=== PATIENT | female | born 1980 | race African-American/Black ===

== ENCOUNTER 2024-02-11 23:42 | Emergency (ER) | payer BC ==
[~2024-02-11] VITALS: Ht 152.4 cm; Wt 85.3 kg
[~2024-02-11 23:42] MED LIST: BACTRIM DS TAB1 EACH PO; ONDANSETRON ODT4 MG PO
[2024-02-11 23:51] VITALS: TEMP 98.4
[2024-02-12] MEDS: KETOROLAC TROMETHAMINE 30 MG/ML VIAL IV STA (00:28)
[2024-02-12 00:30] LABS: BASOPHILS % 0.4 % (0.0-1.0); EOSINOPHILS # (AUTO) 0.1 (0.0-0.4); HEMATOCRIT 41.3 % (34.2-44.1); HEMOGLOBIN 12.9 g/dL (12.0-16.0); LYMPHOCYTES # (AUTO) 3.6 (1.0-3.2); LYMPHOCYTES % 34.4 % (18.0-39.1); MEAN CORPUSCULAR HEMOGLOBIN 29.3 pg (28-32); MEAN CORPUSCULAR HGB CONC 31.2 g/dL (31-35); MEAN CORPUSCULAR VOLUME 93.7 fL (81-99); MONOCYTES # (AUTO) 0.6 (0.2-0.8); MONOCYTES % 5.7 % (4.4-11.3); NEUTROPHILS % 58.3 % (38.7-80.0); PLATELET COUNT 249 x10e3/uL (140-360); RED BLOOD COUNT 4.41 x10e6/uL (3.6-5.1); RED CELL DISTRIBUTION WIDTH 12.9 % (11.7-14.4); WHITE BLOOD COUNT 10.33 x10e3/uL (4.8-10.8)
[2024-02-12 00:33] LABS: PREGNANCY TEST, URINE NEGATIVE (NEGATIVE)
[2024-02-12 00:40] LABS: BILIRUBIN,URINE NEGATIVE (NEGATIVE); CLARITY,URINE SL CLOUDY (CLEAR); COLOR,URINE YELLOW (YELLOW); GLUCOSE, URINE NEGATIVE (NEGATIVE); KETONES,URINE NEGATIVE (NEGATIVE); LEUKOCYTE ESTERASE ,URINE NEGATIVE (NEGATIVE); NITRITE,URINE POSITIVE (NEGATIVE); PH,URINE 5.5 (5 - 7); PROTEIN,URINE DIPSTICK NEGATIVE (NEGATIVE); URINE UROBILINOGEN 0.2 mg/dL (0.2 - 1)
[2024-02-12 00:57] LABS: ALBUMIN 3.7 g/dL (3.5-5.0); ANION GAP 12.6 mmol/L (8-16); BILIRUBIN,TOTAL 0.2 mg/dL (0.2-1.2); CALCIUM 9.5 mg/dL (8.4-10.2); CREATININE, SERUM 1.23 mg/dL (0.57-1.11); POTASSIUM 3.6 mmol/L (3.5-5.1); TOTAL PROTEIN 7.5 g/dL (6.5-8.1)
[2024-02-12 00:59] LABS: BACTERIA,URINE MANY /HPF; EPITHELIAL CELLS,URINE FEW /LPF; RBC,URINE 0-5 /HPF (0-5)
[2024-02-12] MEDS ORDERED: IOPAMIDOL 370 MG/ML 100 ML INFUS..BTL INJ ONE (01:07)
[2024-02-12] MEDS ORDERED: Morphine 4mg INJECTION 4 MG/ML INJ IV PRN (01:30)
[2024-02-12] MEDS ORDERED: HYDRALAZINE HCL 20 MG/ML VIAL IV PRN (01:30)
[2024-02-12] MEDS ORDERED: SODIUM CHLORIDE 0.9% 1000ML 1,000 ML IV SCH (01:30)
[2024-02-12] MEDS ORDERED: ONDANSETRON HCL INJ 2MG/ML 2ML 2 MG/ML VIAL IV PRN (01:30)
[2024-02-12] MEDS: TRAMADOL HCL 50 MG TAB PO STA (02:00)
[2024-02-12 02:02] VITALS: PULSE 77; RESP 18; O2SAT 97
[2024-02-12] MEDS ORDERED: ULTRAM 50MG50 MG PO ×2 (02:06→02:07)
== END 2024-02-12 02:10 | disposition home or self-care (01) ==
LOC: ER 23:49
DX: R10.31 Right lower quadrant pain (principal); N83.201 Unspecified ovarian cyst, right side; D25.9 Leiomyoma of uterus, unspecified; I10 Essential (primary) hypertension
CPT/HCPCS: 36415; 74177; 80053; 81001; 81025; 83690; 85025; 99283; J1885; Q9967

== ENCOUNTER 2024-02-17 09:10 | Emergency (ER) | payer BC ==
[~2024-02-17] VITALS: Ht 152.4 cm; Wt 85.3 kg
[~2024-02-17 09:10] MED LIST changes: +ULTRAM 50MG50 MG PO
[2024-02-17 09:35] VITALS: PULSE 86; RESP 17; TEMP 98.4; O2SAT 100
== END 2024-02-17 10:25 | disposition home or self-care (01) ==
LOC: ER 09:23
DX: K59.00 Constipation, unspecified (principal); I10 Essential (primary) hypertension
CPT/HCPCS: 99282